=== PATIENT | female | born 1990 | race Caucasian/White ===

== ENCOUNTER → 2016-05-17 | Outpatient (CLI) | payer OTHER ==
--- NOTE | 2016-05-17 14:29 | RAD ---
Right breast ultrasound History: Palpable right breast lesions. Comparison: None. Findings: Ultrasound imaging was performed by research food technologist. Within the right breast at 8:30, 4.5 cm from nipple, there is a simple appearing cyst which measures 1.6 x 1.7 x 1.0 cm. In the right breast at 7:00, 3 cm from the nipple, there are 2 adjacent mildly complicated cysts which measure 1.0 x 0.9 x 0.7 cm in aggregate. In the right breast at 6:00, 2 cm from nipple, there is a mildly septated cyst which measures 0.9 x 0.9 x 0.5 cm. No solid masses are seen in the visualized portions of the right breast. Impression: Several right breast cysts. BI-RADS CATEGORY: 2 BENIGN FINDING(S) RECOMMENDED FOLLOW-UP: CLIN FOLLOW UP IMAGING CLINICALLY INDICATED
== END | disposition home or self-care (01) ==
LOC: KCIC US 13:53
PROVIDERS: ATTEND Advanced Practice Midwife
DX: N63 Unspecified lump in breast (principal); N60.01 Solitary cyst of right breast
CPT/HCPCS: 76641

== ENCOUNTER 2021-02-13 01:21 | Emergency (ER) | payer MEDICAID, OTHER ==
[~2021-02-13] VITALS: Ht 157.5 cm; Wt 75.0 kg
[2021-02-13 01:56] LABS: BILIRUBIN,URINE NEGATIVE (NEG); CLARITY,URINE CLEAR; COLOR,URINE YELLOW; NITRITE,URINE NEGATIVE (NEG); PROTEIN,URINE NEGATIVE (NEG-TRACE); UROBILINOGEN,URINE 0.2 mg/dL (0.2 mg/dL)
[2021-02-13] MEDS ORDERED: ONDANSETRON PF 4 MG/2 ML VIAL. IVP ONE (02:00)
[2021-02-13] MEDS ORDERED: IV NORMAL SALINE 1000ML BAG 1,000 ML IV ONE (02:00)
[2021-02-13 02:04] LABS: BACTERIA,URINE FEW /HPF (0-FEW); RBC,URINE 0 /HPF (0-2); WBC,URINE OCC /HPF (0-4)
--- NOTE | 2021-02-13 02:08 | RAD ---
XR CHEST 1V History: Reason: cough / Spl. Instructions: / History: Comparison: None. Findings: No consolidation or pleural effusion. Normal heart size. No pneumothorax. Impression: 1. No acute cardiopulmonary process. Electronically signed by: Donald Paz DO (02/13/2021 2:06 AM) [facility] [place]
[2021-02-13 02:28] LABS: BASO % 0 % (0-3); EOS # 0.1 x10^3/uL (0.0-0.7); EOS % 1 % (0-3); HEMATOCRIT 41.9 % (36.0-47.0); HEMOGLOBIN 14.8 g/dL (12.0-15.5); LYMPH # 1.3 x10^3/uL (1.0-4.8); LYMPH % 12 % (24-48); MEAN CORPUSCULAR HEMOGLOBIN 32 pg (25-35); MEAN CORPUSCULAR HGB CONC 35 g/dL (31-37); MEAN CORPUSCULAR VOLUME 89 fL (79-100); MONO # 0.6 x10^3/uL (0.0-1.1); MONO % 6 % (0-9); NEUT # 8.9 x10^3/uL (1.8-7.7); NEUT % 81 % (31-73); PLATELET COUNT 179 x10^3/uL (140-400); RED BLOOD COUNT 4.68 x10^6/uL (3.50-5.40); RED CELL DISTRIBUTION WIDTH 13.1 % (11.5-14.5)
[2021-02-13 02:34] LABS: CALCIUM 8.4 mg/dL (8.5-10.1); GFR 64.3; POTASSIUM 3.7 mmol/L (3.5-5.1)
[2021-02-13 02:40] LABS: ALBUMIN 3.8 g/dL (3.4-5.0); TOTAL BILIRUBIN 0.6 mg/dL (0.2-1.0); TOTAL PROTEIN 7.7 g/dL (6.4-8.2)
[2021-02-13 02:46] LABS: INFLUENZA A PATIENT NEGATIVE (NEGATIVE); INFLUENZA B PATIENT NEGATIVE (NEGATIVE)
--- NOTE | 2021-02-13 03:01 | PHYS DOC ---
Past Medical History Past Surgical History: No Surgical History General Adult EDM: Chief Complaint: NAUSEA/VOMITING/DIARRHEA HPI: HPI: Patient is a 30 year old female is here for report of nausea and vomiting, myalgias, chills, and generalized malaise and fatigue. Symptoms began tonight. She reports a dry cough for the past 24 hours. She denies documented fever. She denies abdominal pain. She denies urinary symptoms. She reports "a little" diarrhea. She denies recent travel. She is not vaccinated against Covid. She reports that she has been around a family member who is significant other recently tested positive for Covid. She denies any previous Covid and infection. She has not recently been tested for Covid. When asked about loss of sense of smell or taste, she hesitates to answer, and she reports "maybe, not really." Review of Systems: Review of Systems: Constitutional: Reports chills and myalgias. Denies documented fever. Eyes: Denies change in visual acuity. [] HENT: Denies nasal congestion or sore throat. [] Respiratory: Ports dry cough. Denies dyspnea. Cardiovascular: Denies chest pain or edema. [] GI: Denies abdominal pain. Reports nausea, vomiting, diarrhea. : Denies urinary symptoms. Musculoskeletal: Reports diffuse myalgias. Denies joint pain or swelling. Integument: Denies rash. [] Neurologic: Denies headache, focal weakness or sensory changes. [] Psychiatric: Denies depression or anxiety. [] Heart Score: C/O Chest Pain: No Risk Factors: Risk Factors: DM, Current or recent (<one month) smoker, HTN, HLP, family history of CAD, obesity. Risk Scores: Score 0 - 3: 2.5% MACE over next 6 weeks - Discharge Home Score 4 - 6: 20.3% MACE over next 6 weeks - Admit for Clinical Observation Score 7 - 10: 72.7% MACE over next 6 weeks - Early Invasive Strategies Current Medications: Current Medications Medications (Trade) Dose Ordered Sig/Elaine Start Time Stop Time Status Last Admin Dose Admin Ondansetron HCl (Zofran) 4 mg 1X ONCE 02/13/21 02:00 02/13/21 02:01 DC 02/13/21 02:29 4 MG Sodium Chloride 1,000 ml @ 1,000 mls/hr 1X ONCE 02/13/21 02:00 02/13/21 02:59 02/13/21 02:29 1,000 MLS/HR Allergies: Allergies: Allergies Coded Allergies Type Severity Reaction Last Updated Verified No Known Drug Allergies 02/13/21 No Physical Exam: PE: Constitutional: Well developed, well nourished, no acute distress, non-toxic appearance. [] HENT: Normocephalic, atraumatic, bilateral external ears normal, oropharynx moist, no oral exudates, nose normal. [] Eyes: PERRLA, EOMI, conjunctiva normal, no discharge. [] Neck: Normal range of motion, no tenderness, supple, no stridor. [] Cardiovascular: Tachycardic with regular, +2 radial undersize pedis pulses bilaterally. No peripheral edema. Well-perfused appearing. Lungs & Thorax: Bilateral breath sounds clear to auscultation [] Abdomen: Soft, nondistended, nontender to palpation, normal bowel sounds, no palpable masses organomegaly, no CVA tenderness. Skin: Warm, dry, no erythema, no rash. [] Back: No tenderness, no CVA tenderness. [] Extremities: No tenderness, no cyanosis, no clubbing, ROM intact, no edema. No calf tenderness. [] Neurologic: Alert and oriented X 3, normal motor function, normal sensory fun ction, no focal deficits noted. [] Psychologic: Oddly anxious, cooperative. Current Patient Data: Labs: Laboratory Tests Test 02/13/21 01:33 02/13/21 02:17 Urine Collection Type Unknown Urine Color Yellow Urine Clarity Clear Urine pH 5.0 (<5.0-8.0) Urine Specific [place] 1.015 (1.000-1.030) Urine Protein Negative mg/dL (NEG-TRACE) Urine Glucose (UA) Negative mg/dL (NEG) Urine Ketones (Stick) Negative mg/dL (NEG) Urine Blood Negative (NEG) Urine Nitrite Negative (NEG) Urine Bilirubin Negative (NEG) Urine Urobilinogen Dipstick 0.2 mg/dL (0.2 mg/dL) Urine Leukocyte Esterase Negative (NEG) Urine RBC 0 /HPF (0-2) Urine WBC Occ /HPF (0-4) Urine Squamous Epithelial Cells Few /LPF Urine Bacteria Few /HPF (0-FEW) Urine Mucus Slight /LPF POC Urine HCG, Qualitative Hcg negative (Negative) White Blood Count 11.0 x10^3/uL (4.0-11.0) Red Blood Count 4.68 x10^6/uL (3.50-5.40) Hemoglobin 14.8 g/dL (12.0-15.5) Hematocrit 41.9 % (36.0-47.0) Mean Corpuscular Volume 89 fL (79-100) Mean Corpuscular Hemoglobin 32 pg (25-35) Mean Corpuscular Hemoglobin Concent 35 g/dL (31-37) Red Cell Distribution Width 13.1 % (11.5-14.5) Platelet Count 179 x10^3/uL (140-400) Neutrophils (%) (Auto) 81 % (31-73) H Lymphocytes (%) (Auto) 12 % (24-48) L Monocytes (%) (Auto) 6 % (0-9) Eosinophils (%) (Auto) 1 % (0-3) Basophils (%) (Auto) 0 % (0-3) Neutrophils # (Auto) 8.9 x10^3/uL (1.8-7.7) H Lymphocytes # (Auto) 1.3 x10^3/uL (1.0-4.8) Monocytes # (Auto) 0.6 x10^3/uL (0.0-1.1) Eosinophils # (Auto) 0.1 x10^3/uL (0.0-0.7) Basophils # (Auto) 0.0 x10^3/uL (0.0-0.2) Laboratory Tests 02/13/21 02:17 Vital Signs: Vital Signs Date Time Temp Pulse Resp B/P (MAP) Pulse Ox O2 Delivery O2 Flow Rate FiO2 02/13/21 01:53 98.5 121 20 119/57 (77) 97 Room Air 98.5 EKG: EKG: EKG is interpreted at 02 20 Rhythm is sinus tachycardia Heart rate is 111 bpm [place] is normal No STEMI Radiology/Procedures: Radiology/Procedures: [] Course & Med Decision Making: Course & Med Decision Making Pertinent Labs and Imaging studies reviewed. (See chart for details) The patient is given IV fluids and IV Zofran. She is afebrile here. Tachycar awais is improving with hydration. I have discussed the findings, differential diagnosis and plan of care with the patient. I still have concerns that she may very well have Covid. Rapid antigen test is negative. I did explain the limitations of rapid antigen testing, and I explained that repeat Covid swab, specifically outpatient PCR swab be obtained within the next 3 to 5 days may very well return positive. Given her conglomeration of symptoms, I am recommending quarantining at home. I recommended close contacts also quarantine. No current indication for emergent imaging or further invasive exams at this time. The patient feels comfortable going home. Return precautions are given. Dragon Disclaimer: [employer] Disclaimer: This electronic medical record was generated, in whole or in part, using a voice recognition dictation system. Departure Departure Impression: Primary Impression: Nausea vomiting and diarrhea Additional Impressions: Myalgia Chills Disposition: HOME / SELF CARE / HOMELESS Condition: STABLE Referrals: NO PCP (PCP) Patient Instructions: Fever, Nausea and Vomiting Additional Instructions: Please use the nausea medicine as directed and as needed. Please stay well- hydrated. You may take [id number] Tylenol or ibuprofen for pain or fever. Please return immediately for chest pain, shortness of breath, uncontrolled vomiting with dehydration, vomiting blood, severe abdominal pain or any other concerns. Your antigen Covid swab is negative today, however this particular test is quite unreliable early in the course of Covid infection, and I still suspect that you very well may have Covid. I recommend quarantining at home, and you need to make sure all close household contacts quarantine as well. It may be beneficial for you to obtain an outpatient PCR Covid swab in the next week to confirm presence or absence of Covid infection. Scripts Ondansetron Hcl (ZOFRAN) 4 Mg Tablet 4 MG PO PRN TID PRN for VOMITING, #20 EA nausea/vomiting Prov: REX MURPHY DO 02/13/21 REX MURPHY DO Feb 13, 2021 03:01
[2021-02-13 03:30] VITALS: BP 98/55
[2021-02-13] MEDS ORDERED: ONDA4TAB7 PO (03:31)
--- NOTE | 2021-02-13 04:08 | EKG ---
[facility] [address] [place] [address] Test Date: 2021-02-13 Test Time: 02:08:27 Pat Name: MAE TEJADA Department: Room: Gender: F Systems Technician: : 1990 Requested By: REX MURPHY Order Number: [id number] Reading MD: Cb Downey MD Measurements Intervals [place] Rate: 111 P: 36 WI: 100 QRS: 54 QRSD: 96 T: 23 QT: 318 QTc: 436 Interpretive Statements SINUS TACHYCARDIA Electronically Signed On 02-20-2021 12:05:27 CDT by Cb Downey MD
--- NOTE | 2021-02-13 16:33 | NUR ---
IP: Attempted to contact pt concerning covid results. Phone number provided is not in service.
--- NOTE | 2021-02-15 09:53 | NUR ---
IP: Pt called to get results. Informed pt of negative covid test. Pt verbalized understanding. Also instructed pt to update phone number on next visit.
== END 2021-02-13 04:02 | disposition home or self-care (01) ==
LOC: ER 01:21
DX: R11.2 Nausea with vomiting, unspecified (principal); R19.7 Diarrhea, unspecified; M79.10 Myalgia, unspecified site; Z20.822 Contact with and (suspected) exposure to COVID-19
CPT/HCPCS: 71045; 80053; 81001; 81025; 82550; 83605; 83690; 85025; 87426; 87804; 93005; 96361; 96374; 99285; J2405; J7030; U0003; U0005

== ENCOUNTER → 2021-02-15 | Outpatient (CLI) | payer MEDICAID ==
[2021-02-13 03:30] VITALS: BP 98/55
[~2021-02-15] MED LIST: ONDA4TAB7 PO
--- NOTE | 2021-02-15 14:58 | RAD ---
EXAM: 1. BILATERAL DIGITAL DIAGNOSTIC MAMMOGRAPHY. 2. LEFT BREAST ULTRASOUND. HISTORY: Left breast mass. TECHNIQUE: Bilateral full field digital images were obtained in CC and MLO projections. Computer-aide d detection was applied. Sonography of the left entire breast and axilla was also performed. COMPARISON: None available. This is interpreted as a baseline study. COMPOSITION: D. The breasts are extremely dense, which lowers the sensitivity of mammography. FINDINGS: A skin marker is placed superomedially on the left. Underlying this, a region of pleomorphi c calcifications extends anteroposteriorly by at least 4.7 cm. Another focus of calcifications is not ed in the subareolar region, but these are not clearly contiguous. On today's sonography, regional ca lcifications in the palpable focus corresponds with a hypoechoic soft tissue and architectural distor tion spanning 1.3 x 2.5 x 1.6 cm at the 11:00 position 7 cm from the nipple. Magnification images are limited by motion despite multiple technical repeats. Another cluster of calcifications is noted superolaterally on the left, measuring 8 mm mammographical ly. Sonographically this corresponds with a hypoechoic nodule at the 1:00 position 6 cm from the nipp le measuring 6 x 5 mm. Elsewhere sonographically, a few benign-appearing cysts measure up to 6 mm in the subareolar region. There are few mildly dilated ducts. There are no pathologic-appearing left axillary lymph nodes. On the right, a coarse calcification appears benign. There is no suspicious finding on the right. BI-RADS CATEGORY 5: Highly Suggestive of Malignancy--Appropriate action should be taken. RECOMMENDATION: 1. Ultrasound guided biopsy of a 2.5 cm mass containing calcifications at the left 11:00 position 7 c m from the nipple. 2. Ultrasound-guided biopsy of an 8 mm nodule containing calcifications at the 1:00 position 6 cm fro m the nipple. 3. Pending results of these biopsies, MRI could be useful to establish multicentric disease if this r emains unclear. Electronically signed by: Mele Gonzales MD (02/15/2021 2:56 PM) [id number]
== END ==
LOC: MAMMO 13:09
PROVIDERS: ATTEND Family Medicine
DX: N60.02 Solitary cyst of left breast (principal); N63.20 Unspecified lump in the left breast, unspecified quadrant
CPT/HCPCS: 76641; 77066

== ENCOUNTER → 2021-03-29 | Outpatient (CLI) | payer MEDICAID ==
--- NOTE | 2021-03-29 14:38 | RAD ---
EXAM: 1. ULTRASOUND-GUIDED CORE BIOPSY OF 2 LEFT BREAST MASSES WITH CLIP PLACEMENT. 2. POSTCLIP DIAGNOSTIC LEFT MAMMOGRAPHY. HISTORY: Multifocal left breast masses and microcalcifications. Ultrasound-guided biopsy is requested . FINDINGS: The procedure along with its risks and benefits were explained to the patient. She agreed to proceed. A timeout procedure was performed. Sonographic evaluation of the left breast redemonstrates the lesions of concern. These are seen at th e 11:00 position 7 cm from the nipple and the 1:00 position 6 cm from the nipple. The skin overlying both lesions was sterilely prepped and infiltrated with 1% lidocaine for local anesthesia. Under ultr asound guidance, 3 core needle specimens were obtained in through the 1:00 target lesion were obtaine d using a 14-gauge biopsy device. Specimen radiographs demonstrate target calcifications within the s pecimen. These were submitted in formalin. A postbiopsy clip was placed under ultrasound guidance. Under ultrasound guidance, 3 core needle specimens were obtained through the 11:00 target lesion were obtained using a 14-gauge biopsy device. Specimen radiographs demonstrate artery calcifications with in the specimens. These were submitted in formalin. A postbiopsy clip was placed under ultrasound sandhya dance. Pressure was held to hemostasis. There were no immediate complications. Full-field digital mammographic views of the left breast were obtained in CC and MLO projections and interpreted on a dedicated workstation. They demonstrate the clips in correspondence with the target lesions. IMPRESSION: 1. Successful ultrasound-guided left breast biopsy with clip placement of masses and microcalcificati ons at the 1:00 and 11:00 positions. 2. The postbiopsy clips corresponds with the target lesions. Electronically signed by: Mele Gonzales MD (03/29/2021 2:36 PM) [id number]
== END | disposition home or self-care (01) ==
LOC: US 12:27
PROVIDERS: ATTEND Surgery
DX: N63.21 Unspecified lump in the left breast, upper outer quadrant (principal); N63.22 Unspecified lump in the left breast, upper inner quadrant; R92.8 Other abnormal and inconclusive findings on diagnostic imaging of breast; F17.210 Nicotine dependence, cigarettes, uncomplicated; Z79.899 Other long term (current) drug therapy
CPT/HCPCS: 19083; 19084; 77065; A4648; C1819

== ENCOUNTER → 2021-04-17 | Outpatient (CLI) | payer MEDICAID ==
[2021-04-17 15:22] LABS: BASO % 0 % (0-3); EOS # 0.2 x10^3/uL (0.0-0.7); EOS % 2 % (0-3); HEMATOCRIT 43.5 % (36.0-47.0); HEMOGLOBIN 14.8 g/dL (12.0-15.5); LYMPH # 3.2 x10^3/uL (1.0-4.8); LYMPH % 36 % (24-48); MEAN CORPUSCULAR HEMOGLOBIN 30 pg (25-35); MEAN CORPUSCULAR HGB CONC 34 g/dL (31-37); MEAN CORPUSCULAR VOLUME 89 fL (79-100); MONO # 0.6 x10^3/uL (0.0-1.1); MONO % 7 % (0-9); NEUT % 56 % (31-73); PLATELET COUNT 191 x10^3/uL (140-400); RED BLOOD COUNT 4.89 x10^6/uL (3.50-5.40)
[2021-04-17 15:28] LABS: CALCIUM 9.2 mg/dL (8.5-10.1); CREATININE 0.7 mg/dL (0.6-1.0); POTASSIUM 3.7 mmol/L (3.5-5.1)
[2021-04-17 15:41] LABS: ALBUMIN 3.8 g/dL (3.4-5.0); ALBUMIN/GLOBULIN RATIO 0.8 (1.0-1.7); TOTAL BILIRUBIN 0.5 mg/dL (0.2-1.0); TOTAL PROTEIN 8.4 g/dL (6.4-8.2)
== END ==
LOC: ONCLAB 14:47
PROVIDERS: ATTEND Internal Medicine Hematology & Oncology
DX: C50.912 Malignant neoplasm of unspecified site of left female breast (principal)
CPT/HCPCS: 36415; 80053; 85025

== ENCOUNTER → 2021-05-31 | Outpatient (CLI) | payer MEDICAID ==
[~2021-05-31] MED LIST changes: +ACET500T68 PO; +CEPH500T PO; +HYDR-2761 PO; +IBUP-1060 PO
== END ==
LOC: LAB 08:25
PROVIDERS: ATTEND Surgery
DX: Z01.812 Encounter for preprocedural laboratory examination (principal); Z20.822 Contact with and (suspected) exposure to COVID-19; C50.912 Malignant neoplasm of unspecified site of left female breast
CPT/HCPCS: U0003; U0005

== ENCOUNTER 2021-06-01 12:33 | Day surgery (SDC) | payer MEDICAID ==
[~2021-06-01] VITALS: Ht 158.8 cm; Wt 71.0 kg
[~2021-06-01 12:33] MED LIST changes: -ACET500T68 PO; -CEPH500T PO; -HYDR-2761 PO; -IBUP-1060 PO; +IV RINGERS,LACTATED 1000ML 1,000 ML IV SCH; +MORPHINE SULFATE 2 MG/ML INJ. IVP PRN; +PROCHLORPERAZINE 10 MG/2 ML VIAL. IVP PRN; +ceFAZolin SODIUM IV Push 1 GM VIAL. IVP PRN; +fentaNYL PF VIAL 100 MCG/2 ML VIAL IVP PRN
[2021-06-01 13:14] VITALS: BP 102/50
[2021-06-01] MEDS ORDERED: SUCCINYLCHOLINE 200 MG/10 ML VIAL. ONE (13:20)
[2021-06-01] MEDS ORDERED: DEXAMETHASONE SOD PHOS 4 MG/ML VIAL ONE (13:20)
[2021-06-01] MEDS ORDERED: PROPOFOL 10 MG/ML (20ML) VIAL. IV ONE (13:20)
[2021-06-01] MEDS ORDERED: fentaNYL PF VIAL 100 MCG/2 ML VIAL ONE ×2 (13:20→16:18)
[2021-06-01] MEDS ORDERED: LIDOCAINE 2% PF 5 ML VIAL. ONE (13:20)
[2021-06-01] MEDS ORDERED: BUPIVACAINE-EPI 0.5% 30 ML VIAL KIT. ONE (13:22)
[2021-06-01] MEDS ORDERED: EPINEPHrine 1 MG/ML VIAL ONE (13:22)
[2021-06-01] MEDS ORDERED: MIDAZOLAM HCL/PF 2 MG/2 ML VIAL. ONE (13:41)
[2021-06-01] MEDS ORDERED: ePHEDrine PF IN SALINE 50 MG/10 ML SYRINGE. IV ONE (13:52)
[2021-06-01] MEDS ORDERED: BUPIVACAINE-EPI 0.25% 30 ML VIAL KIT. ONE (14:07)
[2021-06-01] MEDS ORDERED: KETOROLAC 30 MG/ML VIAL. ONE (14:22)
[2021-06-01] MEDS ORDERED: HYDROmorphone 2 MG/ML INJ. ONE ×2 (14:50→16:36)
[2021-06-01] MEDS ORDERED: ACET500T68 PO (15:47)
[2021-06-01] MEDS ORDERED: IBUP-1060 PO (15:47)
--- NOTE | 2021-06-01 16:06 | PDOC4 ---
OPERATIVE NOTE Date: Date: Jun 01, 2021 Pre-Op Diagnosis: Left breast cancer Post-Op Diagnosis: Same Procedure Performed: Bilateral TRAM flap delay CPT 7160747 Excision abdominal skin lesion CPT 83984 Incision [id number] Surgeon: Jeanette Coleman MD Anesthesia Type: General LMA anesthesia Blood Loss: 10 cc Specimans Obtained: Abdominal wall skin lesion Findings: See operative note Complications: None Operative Note: Informed consent was obtained in the perioperative holding area. The risks of bleeding, infection, hematoma, seroma, injury to surrounding nerves, hernia, bulges were discussed with the patient. She understood the risks and she desired to proceed. The patient was taken to the operating room and placed on the OR table in the supine position. SCDs were placed. IV antibiotics were given. General LMA anesthesia was administered. The abdomen was prepped with ChloraPrep and draped in a sterile fashion. I began by removing a skin lesion from the upper left quadrant of the abdomen. Using a #15 scalpel an elliptical incision was made at the base of the lesion and the scalpel was used to remove the lesion from the underlying subcutaneous tissues. Hemostasis was achieved with cautery. The lesion measured 1.2 cm x 0.5 cm and a 2 mm margin was taken given the total resection of 1.4 cm x 0.7 cm x 0.2 cm at the subcutaneous level. The lesion was passed off for pathology. Hemostasis was achieved with cautery. The deep dermis was closed with 4-0 Monocryl suture. The skin was closed with 4-0 Monocryl suture using interrupted horizontal mattress sutures. Attention was then turned to the TRAM flap delay. Each side proceeded as follows: A #15 scalpel was used to make an incision through the skin and superficial dermis. Cautery was used to open the deep dermis into the underlying subcutaneous tissues. The superficial epigastric vessels were cauterized. Dissection continued with hemostats until the fascia was reached. A 4 cm incision began at the fascial layer approximately 6 cm lateral to midline. Hemostats were used to gently dissect the fascia from the underlying preperitoneal fat. The deep inferior epigastric vessels were seen exiting the lateral edge of the rectus muscle. Right angle clamps were used to gently dissect around the vessels and occlude the vessels. Metzenbaum scissors were used to transect the vessels. A combination of medium hemoclips and 3-0 silk sutures were used to ligate the vessels. Hemostasis was assured. The overlying fascia was then approximated with 3-0 Vicryl suture in a ennycr-sc-aeoiy pattern. The deep dermis was closed with 3-0 Vicryl suture. The skin was closed with a running 4-0 Monocryl subcuticular suture. The patient tolerated the procedure well. All needle and sponge counts were correct. The patient was transferred to the recovery room in stable condition. JEANETTE COLEMAN MD Jun 01, 2021 16:05
[2021-06-01] MEDS: fentaNYL PF VIAL 100 MCG/2 ML VIAL IVP PRN ×2 (16:23→16:28)
[2021-06-01 16:36] VITALS: BP 112/62
[2021-06-01] MEDS: HYDROmorphone 2 MG/ML INJ. IVP PRN ×2 (16:40→16:53)
[2021-06-01] MEDS ORDERED: SEVOFLURANE 31 TO 60 MINUTES. IH ONE (16:58)
--- NOTE | 2021-06-05 17:06 | PATHOLOGY ---
[facility] Accession Number: [id number] . 01 Material submitted: . abdomen - ABNORMAL SKIN LESION . 01 Clinical history: . SKIN LESION ABDOMEN . 02 Diagnosis: Skin and subcutaneous tissue, abdominal skin lesion excision: - Polypoid compound melanocytic nevus, excised. (JPM:chair mender; 06/05/2021) MBR 06/05/2021 1339 Local . 02 Comment: There is no evidence of malignancy. (JPM:chair mender; 06/05/2021) . 02 Electronically signed: . Kenton Melgoza MD, Pathologist NPI- [id number] . 01 Gross description: . Received in formalin labeled "[place], Rosario, abdominal skin lesion" is a sevilla-brown verrucoid skin lesion measuring 1.2 x 0.7 x 0.7 cm. The margin is inked and the specimen is quadrisected and submitted in A1. Also present in the container is a separate fragment of sevilla-white soft tissue measuring 0.8 x 0.6 x 0.2 cm, which is inked and submitted without sectioning in A2. [place] [place] [facility] 06/04/2021 1022 Local . 02 Pathologist provided ICD-10: D22.5 . 02 CPT . 654174 Specimen Comment: A courtesy copy of this report has been sent to [phone], [phone] Specimen Comment: [phone] Specimen Comment: Report sent to / DR MAGUIRE Performed at: [address], [place], [place] [id number] MD Pedro Valladares MD Phone: [phone] Performed at: 02 [facility] [address] [place], [place] [id number] MD Kenton Melgoza MD Phone: [phone]
== END 2021-06-01 17:35 | disposition home or self-care (01) ==
LOC: SURG 12:33
PROVIDERS: ATTEND Plastic Surgery
DX: D22.5 Melanocytic nevi of trunk (principal); C50.912 Malignant neoplasm of unspecified site of left female breast; F41.9 Anxiety disorder, unspecified; F32.9 Major depressive disorder, single episode, unspecified; F17.210 Nicotine dependence, cigarettes, uncomplicated; Z79.899 Other long term (current) drug therapy; Z98.890 Other specified postprocedural states; Z72.89 Other problems related to lifestyle; Z88.8 Allergy status to other drugs, medicaments and biological substances
CPT/HCPCS: 11402; 15600; 81025; A4364; A4930; A6219; J0330; J0690; J1100; J1170; J1885; J2250; J2704; J3010; 88305; A4452; J0171

== ENCOUNTER → 2021-06-14 | Outpatient (CLI) | payer MEDICAID ==
[2021-06-01 16:36] VITALS: BP 112/62
[~2021-06-14] MED LIST changes: +ACET500T68 PO; +CEPH500T PO; +HYDR-2761 PO; +IBUP-1060 PO; -IV RINGERS,LACTATED 1000ML 1,000 ML IV SCH; -MORPHINE SULFATE 2 MG/ML INJ. IVP PRN; -PROCHLORPERAZINE 10 MG/2 ML VIAL. IVP PRN; -ceFAZolin SODIUM IV Push 1 GM VIAL. IVP PRN; -fentaNYL PF VIAL 100 MCG/2 ML VIAL IVP PRN
[2021-06-14 13:34] LABS: BASO # 0.1 x10^3/uL (0.0-0.2); BASO % 1 % (0-3); EOS # 0.1 x10^3/uL (0.0-0.7); EOS % 1 % (0-3); HEMATOCRIT 39.9 % (36.0-47.0); HEMOGLOBIN 13.3 g/dL (12.0-15.5); LYMPH # 2.8 x10^3/uL (1.0-4.8); LYMPH % 31 % (24-48); MEAN CORPUSCULAR HEMOGLOBIN 30 pg (25-35); MEAN CORPUSCULAR HGB CONC 33 g/dL (31-37); MEAN CORPUSCULAR VOLUME 89 fL (79-100); MONO # 0.4 x10^3/uL (0.0-1.1); MONO % 4 % (0-9); NEUT # 5.5 x10^3/uL (1.8-7.7); NEUT % 63 % (31-73); PLATELET COUNT 213 x10^3/uL (140-400); RED BLOOD COUNT 4.47 x10^6/uL (3.50-5.40); RED CELL DISTRIBUTION WIDTH 13.6 % (11.5-14.5); WHITE BLOOD COUNT 8.9 x10^3/uL (4.0-11.0)
[2021-06-14 13:46] LABS: PROTHROMBIN TIME PATIENT 13.9 SEC (11.7-14.0)
[2021-06-14 13:47] LABS: ALBUMIN 3.8 g/dL (3.4-5.0); ALBUMIN/GLOBULIN RATIO 0.8 (1.0-1.7); CALCIUM 8.8 mg/dL (8.5-10.1); CREATININE 0.8 mg/dL (0.6-1.0); GFR 83.1; POTASSIUM 3.6 mmol/L (3.5-5.1); TOTAL BILIRUBIN 0.4 mg/dL (0.2-1.0); TOTAL PROTEIN 8.3 g/dL (6.4-8.2)
--- NOTE | 2021-06-14 14:02 | EKG ---
[facility] [address] [place] [address] Test Date: 2021-06-14 Test Time: 13:32:10 Pat Name: MAE TEJADA Department: Room: Gender: F Resourcing Advisor: : 1990 Requested By: EDY COLEMAN Order Number: [id number] Reading MD: Cb Downey MD Measurements Intervals [place] Rate: 90 P: 52 ME: 138 QRS: 51 QRSD: 92 T: 34 QT: 342 QTc: 422 Interpretive Statements SINUS RHYTHM Electronically Signed On 06-15-2021 9:26:47 FINISHER WALLBOARD AND PLASTERBOARD by Cb Downey MD
== END ==
LOC: SURGPAT 12:49
PROVIDERS: ATTEND Plastic Surgery
DX: C50.912 Malignant neoplasm of unspecified site of left female breast (principal); U07.1 COVID-19; Z01.818 Encounter for other preprocedural examination
CPT/HCPCS: 36415; 80053; 84134; 85025; 85610; 85730; 93005; U0003

== ENCOUNTER 2021-07-28 06:53 | Day surgery (SDC) | payer MEDICAID ==
[~2021-07-28] VITALS: Ht 158.8 cm; Wt 69.5 kg
[~2021-07-28 06:53] MED LIST changes: -CEPH500T PO; +HYDROmorphone 2 MG/ML INJ. IVP PRN; +IV RINGERS,LACTATED 1000ML 1,000 ML IV SCH; +MORPHINE SULFATE 2 MG/ML INJ. IVP PRN; +PROCHLORPERAZINE 10 MG/2 ML VIAL. IVP PRN; +fentaNYL PF VIAL 100 MCG/2 ML VIAL IVP PRN
[2021-07-28 07:28] VITALS: BP 16/60
[2021-07-28] MEDS ORDERED: CEPH500T PO (07:35)
[2021-07-28 07:55] LABS: BASO % 0 % (0-3); EOS # 0.2 x10^3/uL (0.0-0.7); EOS % 3 % (0-3); HEMATOCRIT 38.6 % (36.0-47.0); HEMOGLOBIN 12.4 g/dL (12.0-15.5); LYMPH # 2.8 x10^3/uL (1.0-4.8); LYMPH % 38 % (24-48); MEAN CORPUSCULAR HEMOGLOBIN 28 pg (25-35); MEAN CORPUSCULAR HGB CONC 32 g/dL (31-37); MEAN CORPUSCULAR VOLUME 87 fL (79-100); MONO # 0.5 x10^3/uL (0.0-1.1); MONO % 7 % (0-9); NEUT # 3.8 x10^3/uL (1.8-7.7); NEUT % 52 % (31-73); PLATELET COUNT 249 x10^3/uL (140-400); RED BLOOD COUNT 4.42 x10^6/uL (3.50-5.40); WHITE BLOOD COUNT 7.4 x10^3/uL (4.0-11.0)
[2021-07-28] MEDS ORDERED: SODIUM HYPOCHLORITE 0.25% 473 ML BOTTLE. TP SCH (08:00)
[2021-07-28] MEDS ORDERED: DEXAMETHASONE SOD PHOS 4 MG/ML VIAL ONE (08:03)
[2021-07-28] MEDS ORDERED: PROPOFOL 10 MG/ML (20ML) VIAL. IV ONE ×2 (08:03→10:39)
[2021-07-28] MEDS ORDERED: KETOROLAC 30 MG/ML VIAL. ONE (08:03)
[2021-07-28] MEDS ORDERED: ONDANSETRON PF 4 MG/2 ML VIAL. ONE (08:03)
[2021-07-28] MEDS ORDERED: LIDOCAINE 2% PF 5 ML VIAL. ONE (08:03)
[2021-07-28] MEDS ORDERED: MIDAZOLAM HCL/PF 2 MG/2 ML VIAL. ONE (08:04)
[2021-07-28] MEDS ORDERED: fentaNYL PF VIAL 100 MCG/2 ML VIAL ONE ×3 (08:04→12:07)
[2021-07-28] MEDS ORDERED: ROCURONIUM 50 MG/5 ML VIAL. ONE (08:09)
[2021-07-28] MEDS ORDERED: diphenhydrAMINE 50 MG/ML VIAL ONE (08:37)
[2021-07-28] MEDS ORDERED: FAMOTIDINE 20 MG/2 ML VIAL ONE (08:38)
[2021-07-28] MEDS ORDERED: GLYCOPYRROLATE 1 MG/5 ML VIAL. ONE (09:19)
[2021-07-28] MEDS ORDERED: NEOSTIGMINE METHYLSULFATE 5 MG/5 ML SYRINGE. ONE (09:39)
[2021-07-28] MEDS ORDERED: SEVOFLURANE 61 TO 120 MINUTES. IH ONE (09:39)
[2021-07-28 12:00] VITALS: BP 128/65
[2021-07-28] MEDS ORDERED: HYDROcodone/APAP 5/325MG 1 TAB TABLET ONE (12:08)
[2021-07-28] MEDS ORDERED: HYDROcodone/APAP 5/325MG 1 TAB TABLET PO ONE (12:30)
--- NOTE | 2021-07-28 17:24 | PDOC4 ---
OPERATIVE NOTE Date: Date: Jul 28, 2021 Pre-Op Diagnosis: History of left breast cancer status post autologous flap reconstruction Post-Op Diagnosis: Same Procedure Performed: Exploration right TRAM flap, debridement left TRAM flap, debridement umbilicus [employer] Incision 9:03AM - 10:30AM Surgeon: Jeanette Coleman MD Anesthesia Type: General Blood Loss: 10 cc Specimans Obtained: Swab culture left breast, left mastectomy skin Findings: See operative note Complications: None Operative Note: Informed consent was again discussed in the perioperative holding area. Risks including, but not limited to, bleeding, infection, pain, scarring, wound healing issues, asymmetry, contour deformity, need for additional revision or reconstruction procedures, need for fat grafting to replace lost volume from debridement, and interference with chemotherapy scheduling were discussed with the patient. She understood the above and desired to proceed. The patient was brought to the operating room and placed on the OR table in the supine position. A timeout was completed verifying the correct patient and correct procedure. SCDs were placed. IV antibiotics were given. General anesthesia was induced. The patient's chest and abdomen were prepped with Betadine solution and draped in a sterile fashion. I began with the right breast, removing the small eschar that had developed postoperatively. I further open the incision to explore the viability of the flap. A small nonpurulent seroma was evacuated, less than 20 cc. The subcutaneous tissue and underlying muscle appeared viable. The breast was irrigated with 1 L of diluted Betadine solution. The skin was reapproximated with 4-0 Monocryl running subcuticular suture. Attention was then turned to the left breast. Using a curette, forceps, and scissors debridement of all devitalized adipose tissue was performed. The muscle was incised and noted to have minimal bleeding. The superior two thirds of the reconstructed breast had viable adipose tissue. No signs of infection, hematoma, or fluid collection. A swab wound culture was taken, understanding this was an open wound. The site was irrigated with 2 L of diluted Betadine solution. The superior and inferior mastectomy flaps were then approximated. S tanding skin redundancy remained at the medial and lateral ends. These were marked and excised using a #15 scalpel. The deep dermis was closed with 2-0 PDS suture followed by running 4-0 Monocryl subcuticular suture. Attention was then turned to the umbilicus. It was noted to be detached from the surrounding abdominal flap. Thorough debridement with a curette was performed of the umbilicus as well as the surrounding abdominal flap. Bleeding tissue was encountered on both the umbilicus and the abdominal flap. The site was irrigated with 1 L of diluted Betadine solution. The deep dermis of the umbilicus was approximated to the deep dermis of the abdominal flaps using 2-0 PDS sutures followed by 3-0 PDS sutures and 4Monocryl suture. An airtight seal was not obtained and space was left superiorly and inferiorly for drainage. The breast incisions were dressed with Mastisol, Steri-Strips, then covered with ABDs and tape. The umbilicus was covered with an ABD and tape. The patient tolerated procedure well and was transferred to the PACU in stable condition. JEANETTE COLEMAN MD Jul 28, 2021 17:24
--- NOTE | 2021-07-31 16:16 | PATHOLOGY ---
[facility] Accession Number: [id number] . 01 Material submitted: . breast - LEFT BREAST MASTECTOMY TISSUE. Modifiers: left . 01 Clinical history: . HX OF BREAST CA INFECTED POST-OP BREASTS (POST-CROFT) BILATERAL BREAST DEBRIDEMENT . 02 Diagnosis: Segments of skin and subcutaneous tissue, left breast mastectomy tissue: - Focal fat necrosis, coagulative necrosis, and acute inflammation. (JPM:birdie; 07/31/2021) S 07/31/2021 1456 Local . 02 Electronically signed: . Kenton Melgoza MD, Pathologist NPI- [id number] . 01 Gross description: . Received in formalin labeled "Rosario Gross, left breast mastectomy tissue" are multiple irregular fragments of sevilla-white skin and underlying yellow-sevilla soft tissue measuring in aggregate 6.2 x 4.3 x 1.3 cm. The skin surfaces display focal slightly hong discoloration at the periphery. Upon sectioning, the cut surfaces are diffusely fibrotic. Program Review Director tissue is submitted in cassette A1. ([facility] [place] [facility] 07/30/2021 0711 Local . 02 Pathologist provided ICD-10: L08.9, M79.9, Z85.3 . 02 CPT . 636720 Specimen Comment: A courtesy copy of this report has been sent to [phone] Specimen Comment: [phone] Specimen Comment: Report sent to / DR MAGUIRE Performed at: 01 [facility] [address] [facility] [address], [place], [place] [id number] MD Pedro Valladares MD Phone: [phone] Performed at: 02 [facility] [address] [place], [place] [id number] MD Kenton Melgoza MD Phone: [phone]
== END 2021-07-28 13:05 | disposition home or self-care (01) ==
LOC: SURG 06:53
PROVIDERS: ATTEND Plastic Surgery
DX: L08.9 Local infection of the skin and subcutaneous tissue, unspecified (principal); M79.9 Soft tissue disorder, unspecified; Z85.3 Personal history of malignant neoplasm of breast; F41.9 Anxiety disorder, unspecified; F32.9 Major depressive disorder, single episode, unspecified; F17.210 Nicotine dependence, cigarettes, uncomplicated; Z79.899 Other long term (current) drug therapy; Z98.890 Other specified postprocedural states
CPT/HCPCS: 11042; 11043; 11045; 36415; 81025; 85025; 87075; A4209; A4930; A6254; A6258; J0690; J1100; J1200; J1885; J2250; J2405; J2704; J2710; J3010; J3490; 88304

== ENCOUNTER → 2021-09-06 | Outpatient (CLI) | payer MEDICAID ==
[~2021-09-06] MED LIST changes: +CEPH500T PO; -HYDROmorphone 2 MG/ML INJ. IVP PRN; -IV RINGERS,LACTATED 1000ML 1,000 ML IV SCH; -MORPHINE SULFATE 2 MG/ML INJ. IVP PRN; -PROCHLORPERAZINE 10 MG/2 ML VIAL. IVP PRN; -fentaNYL PF VIAL 100 MCG/2 ML VIAL IVP PRN
== END ==
LOC: SPEC 13:01
PROVIDERS: ATTEND Plastic Surgery
DX: N61.1 Abscess of the breast and nipple (principal)
CPT/HCPCS: 87075

== ENCOUNTER → 2021-09-12 | Outpatient (CLI) | payer MEDICAID | LOC: SPEC 09:13 | PROVIDERS: ATTEND Plastic Surgery | DX: N61.1 Abscess of the breast and nipple (principal) | CPT/HCPCS: 87075 ==